=== PATIENT | male | born 1990 | race Caucasian/White ===

== ENCOUNTER 2017-07-21 18:07 | Emergency (ER) | payer MEDICAID ==
[~2017-07-21] VITALS: Ht 193 cm; Wt 99.8 kg
[2017-07-22] MEDS ORDERED: LORazepam 0.5 MG TAB PO ONE (00:45)
[2017-07-22 00:48] VITALS: BP 151/82
== END 2017-07-22 01:40 | disposition home or self-care (01) ==
LOC: ER 18:07
DX: R03.0 Elevated blood-pressure reading, without diagnosis of hypertension (principal); F41.9 Anxiety disorder, unspecified; Z00.8 Encounter for other general examination
CPT/HCPCS: 93005